=== PATIENT | female | born 1985 | race African-American/Black ===

== ENCOUNTER 2017-10-17 13:51 | Outpatient (CLI) | payer OTHER, SELFPAY ==
[2017-10-17 14:04] VITALS: BP 128/68; PULSE 95; RESP 18; TEMP 36.7; O2SAT 100; BMI 48.7
[2017-10-17 14:24] LABS: Amphetamine/Metha Screen,Urine Negative ng/mL (<1000); Barbiturates Screen,Urine Negative ng/mL (<200); Benzodiazepines Screen,Urine Negative ng/mL (200); Cannabinoid Screen,Urine Negative ng/mL (<50); Cocaine Screen,Urine Negative ng/g (<300); Methadone Screen,Urine Negative ng/mL (<300); Opiate Screen,Urine Negative ng/mL (<300); Phencyclidine Screen,Urine Negative ng/mL (<25)
[2017-10-17 14:50] LABS: Microscopic, Urine URINE MICROSCOPIC (MICROSCOPIC)
[2017-10-17 14:53] LABS: Appearance,Urine CLEAR (Clear); Blood, Urine Negative (Negative); Color,Urine ORANGE (Yellow); Glucose,Urine (UA) Negative (Negative); Ketones,Urine 1+ (Negative); Leukocyte Esterase,Urine Negative (Negative); Nitrate,Urine Negative (Negative); Protein,Urine TRACE (Negative); Specific Gravity, Urine 1.025 (1.005-1.030); Urobilinogen,Urine >=8.0 EU/dl (0.2)
[2017-10-17 15:04] LABS: Bilirubin,Urine Negative (Negative)
[2017-10-17 15:20] LABS: Bacteria,Urine 3+ /lpf; Mucus,Urine 4+ /lpf; RBC,Urine Occasional #/hpf (0-3)
--- NOTE | 2017-10-17 15:27 | P.PN_ITS ---
Internal Medicine - PN: Subj *Date: 10/17/17 *Time: 15:25 Interval history: She is a 32-year-old 3 para 2 who is 30 weeks and 1 day gestational age. She has a 2 week history of left lower quadrant pain as well as chest pain on exertion at night she says. She says she gets some chest pain in her chest and lower left quadrant when she is doing work around the house. Her nonstress test is reactive there is no contractions on the monitor. We did an EKG and it was normal. Cervix is long and closed. Exam Vital signs and Labs for Last 24 Hours: Temp Pulse Resp BP Pulse Ox 98.0 F 95 H 18 128/68 100 10/17/17 14:04 10/17/17 14:04 10/17/17 14:04 10/17/17 14:04 10/17/17 14:04 Laboratory Results - last 24 hr 10/17/17 14:00: Urine Color [place], Urine Appearance Clear, Urine pH 6.0, Ur Specific [place] 1.025, Urine Protein Trace, Urine Glucose (UA) Negative, Urine Ketones 1+, Urine Blood Negative, Urine Nitrate Negative, Urine Bilirubin Negative, Urine Urobilinogen >=8.0, Ur Leukocyte Esterase Negative, Urine RBC Occasional, Urine WBC 3-5, Ur Squamous Epith Cells 10-20, Urine Bacteria 3+, Urine Mucus 4+ 10/17/17 14:00: Urine Opiates Screen Negative, Ur Barbituates Screen Negative, Ur Phencyclidine Scrn Negative, Ur Amphetamines Screen Negative, U Methamphetamines Scrn Negative, U Benzodiazepines Scrn Negative, Urine Cocaine Screen Negative, U Marijuana (THC) Screen Negative I & O for Last 24 hours: Intake & Output 10/15/17 10/16/17 10/17/17 10/18/17 11:59 11:59 11:59 11:59 Weight 293 lb - Constitutional no acute distress Assessment and Plan (1) Left lower quadrant pain Current visit: Yes Status: Acute Category: Medical Code(s): R10.32 - Left lower quadrant pain (2) Atypical chest pain Current visit: No Status: Acute Category: Medical Code(s): R07.89 - Other chest pain (3) Current visit: No Status: Acute Category: Medical Code(s): Z34.90 - Encounter for supervision of normal , unspecified, unspecified trimester - Assessment and plan all Dx Assessment and Plan for all problems:: At this point in time she does not have any acute problem going on. There is no evidence of contractions on the monitor. There has been no change in her cervix. Her EKG is normal. I have reassured her. 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
== END 2017-10-17 15:25 | disposition home or self-care (01) ==
LOC: OBOUT 13:54 → OB 13:55
PROVIDERS: PCP Family Medicine; Visit Provider Nurse Practitioner Obstetrics & Gynecology
DX: O26.893 Other specified pregnancy related conditions, third trimester (principal); Z3A.30 30 weeks gestation of pregnancy; R07.9 Chest pain, unspecified; R10.32 Left lower quadrant pain
CPT/HCPCS: 80305; 81001; 87086; 93005